=== PATIENT | male | born 1925 | race Caucasian/White ===

== ENCOUNTER → 2016-10-19 12:37 | Outpatient (CLI) | payer MEDICARE ==
[2016-02-23 10:57] VITALS: BMI 20.6
[~2016-10-19 12:37] MED LIST: BACTRIM DS TABL1 TAB PO; CORTEF10 MG PO; DIFLUCAN100 MG PO; LISINOPRIL5 MG PO; LUMIGAN 0.01%2.5 ML RIGHT EYE; OMEPRAZOLE20 M1 PO
== END | disposition home or self-care (01) ==
LOC: D.RAD 12:37
DX: R13.10 Dysphagia, unspecified (principal)